=== PATIENT | male | born 2000 | race Caucasian/White ===

== ENCOUNTER 2021-04-14 18:28 | Emergency (ER) | payer OTHER, SELFPAY ==
[2021-04-14 18:40] VITALS: BP 119/69; PULSE 97; RESP 16; TEMP 37.1; O2SAT 99
--- NOTE | 2021-04-14 19:00 | ED.URI ---
HPI - URI/Sore Throat General Chief Complaint: Upper Respiratory Infection Stated Complaint: ears clogged/sinus infection Time Seen by Provider: 04/14/21 18:43 Source: patient, family and RN notes reviewed Mode of arrival: ambulatory Limitations: no limitations History of Present Illness HPI Narrative: Patient presents today complaining of a 10-day history of bilateral ear pain, left greater than right. No drainage or decreased hearing. Patient has been using swim ear for the past 10 days and thought that symptoms have been improving, but worsened again a few days ago. He also reports congestion with sinus drainage, cough, postnasal drip since yesterday with sinus pressure. He took a dose of Robitussin today. MD elicited complaint: cough, rhinorrhea, nasal congestion and sinus pain Related Data Allergies Allergy/AdvReac Type Severity Reaction Status Date / Time No Known Allergies Allergy Verified 04/14/21 19:01 Review of Systems Review of Systems: Narrative: CONSTITUTIONAL: Denies body aches, fever, chills, or sweats. EYES: Denies visual changes, redness, or discharge. ENT: Denies sore throat, or otalgia. + Rhinorrhea, congestion, postnasal drip, sinus pressure CARDIOVASCULAR: Denies chest pain, palpitations, or edema. RESPIRATORY: Denies dyspnea.+ Cough GASTROINTESTINAL: Denies abdominal pain, nausea, vomiting, or diarrhea. GENITOURINARY: Denies dysuria or hematuria. SKIN: Denies rash, itching, or wounds. MUSCULOSKELETAL: Denies back pain, joint pain, or myalgia. NEUROLOGIC: Denies headache, numbness, tingling, or weakness. PSYCH: Denies depression or anxiety. PMFSH Comments At time of signature, I have reviewed and agree with nursing past medical, surgical, social and family history unless otherwise noted. Please see nursing chart for further information. There is no relevant family history pertinent to the presenting complaint Exam Narrative: Exam Narrative: GENERAL: Well-appearing, well-nourished, and in no acute distress. HEAD: Normocephalic, atraumatic. EYES: EOMI. No redness or drainage. Conjunctivae normal. ENT: Mucous membranes pink and moist. Nares congested. + rhinorrhea. TMs normal bilaterally. Left ear canal is erythematous with scant edema. Throat normal with moderate amount of clear postnasal drainage.. Uvula midline. NECK: Normal AROM. Supple. No lymphadenopathy. CHEST: No respiratory distress. Clear to auscultation. HEART: Regular rate and rhythm. No murmur appreciated. Normal peripheral pulses. EXTREMITIES: Normal range of motion. No edema. SKIN: Warm, dry, no rash. Capillary refill normal. Normal skin turgor. NEURO: No focal deficits. Alert and oriented x3. Gait steady. PSYCH: Normal affect. No signs of depression or anxiety. Course Vital Signs Vital signs: Vital Signs Temperature 98.8 F 04/14/21 18:40 Pulse Rate 97 04/14/21 18:40 Respiratory Rate 16 04/14/21 18:40 Blood Pressure 119/69 04/14/21 18:40 Pulse Oximetry 99 04/14/21 18:40 Temperature 98.8 F 04/14/21 18:40 Pulse Rate 97 04/14/21 18:40 Respiratory Rate 16 04/14/21 18:40 Blood Pressure 119/69 04/14/21 18:40 Pulse Oximetry 99 04/14/21 18:40 Reviewed MDM - URI/Sore Throat Differential Diagnosis Differential diagnosis: Likely upper respiratory infection, sinusitis, viral infection and other (Otitis media, otitis externa, ruptured TM, serous otitis, eustachian tube dysfunction, rhinitis, seasonal allergies) Critical Care Time Critical Care Time Critical Care Time: No Discharge Plan Discharge Clinical Impression: Allergic rhinitis Qualifiers: Allergic rhinitis trigger: unspecified Allergic rhinitis seasonality: unspecified Qualified Code(s): J30.9 - Allergic rhinitis, unspecified Left otitis externa Qualifiers: Otitis externa type: unspecified type Chronicity: acute Qualified Code(s): H60.502 - Unspecified acute noninfective otitis externa, left ear Patient Disposition: Home, [place]
== END 2021-04-14 19:09 | disposition home or self-care (01) ==
PROVIDERS: Emergency Provider Nurse Practitioner
DX: J30.9 Allergic rhinitis, unspecified (principal); H60.502 Unspecified acute noninfective otitis externa, left ear
CPT/HCPCS: 99213; G0463